=== PATIENT | male | born 1950 | race Caucasian/White ===

== ENCOUNTER 2020-02-15 07:10 | Inpatient (IN) ==
[2020-02-15] MEDS ORDERED: GLUCAGON 1 MG VIAL IM PRN ×2 (12:12)
[2020-02-15] MEDS ORDERED: CEFUROXIME INJ 1,500 MG in SODIUM CHLORIDE 0.9% 100 ML IV ONE (12:12)
[2020-02-15] MEDS ORDERED: DEXTROSE 50% 25 GM/50 ML VIAL IV PRN ×2 (12:12)
[2020-02-15] MEDS ORDERED: SODIUM CHLORIDE 0.9% 1,000 ML IV SCH (12:30)
[2020-02-15] MEDS ORDERED: CLORAZEPATE 3.75 MG TABLET PO PRN (14:07)
[2020-02-15] MEDS ORDERED: NITROGLYCERIN SL 0.4 MG TABLET SL PRN (14:07)
[2020-02-15] MEDS ORDERED: ZALEPLON 5 MG CAPSULE PO PRN (14:08)
[2020-02-15] MEDS: INSULIN LISPRO 100 UNIT/ML SUBCUT SCH ×2 (16:55→20:55)
[2020-02-15 16:57] LABS: Basophils % 0.3 % (0.0-0.8); Eosinophils # 0.1 10*3/uL (0.0-0.87); Eosinophils % 0.9 % (0.00-10.9); Hematocrit 34.6 VOL% (42.0-52.0); Hemoglobin 11.4 GM/DL (14.0-18.0); Immature Granulocytes % 0.6 %; Immature Granulocytes Absolute 0.06 #; Lymphocytes # 1.4 10*3/uL (1.4-4.0); Lymphocytes % 14.9 % (21.2-54.2); Mean Corpuscular HGB Conc 32.9 GM/DL (32-36); Mean Corpuscular Volume 90.6 FL (87-102); Mean Platelet Volume 10.8 FL (9.6-12.0); Monocytes % 11.5 % (1.7-12.7); Neutrophils % 71.8 % (38.7-73.9); Platelet Count 292 T/CUMM (130-400); Red Blood Count 3.82 MC/CUMM (3.8-5.5); Red Cell Distribution Width 13.8 % (9.3-17.3); White Blood Count 9.6 T/CUMM (4-12)
[2020-02-15 17:30] LABS: Albumin 3.2 G/DL (3.4-5.0); Bilirubin,Total 0.9 MG/DL (0.2-1.0); CKMB % 2.8 %; Calcium 9.2 MG/DL (8.5-10.1); Osmolality,Calculated 282.7 MOS/KG (273-304)
[2020-02-15 17:33] LABS: Troponin I 23.9 NG/ML (0.00-0.045)
[2020-02-15] MEDS: CHLORHEXIDINE 4% SOLN 118 ML BOTTLE TOP SCH ×2 (17:45→23:41)
[2020-02-15 19:56] LABS: Partial Thromboplastin Time 26.8 SECS (23.9-33.8)
[2020-02-15] MEDS ORDERED: HEPARIN DRIP 25,000 UNITS/500 ML PREMIX IV SCH (20:00)
[2020-02-15] MEDS: POTASSIUM CHLORIDE RIDER 10 MEQ in PREMIX 1 EACH IV PRN ×3 (20:20→22:12)
[2020-02-15] MEDS: CHLORHEXIDINE 0.12% ORAL RINSE 60 ML BOTTLE SWISH/SPIT SCH (20:55)
[2020-02-16 04:02] LABS: ABG Base Excess 0.4 MMOL/L (-2.5-2.5); ABG HCO3 23.3 MMOL/L (20-26); ABG Oxygen Saturation 97.8 % (95-100); ABG PCO2 31.6 MM HG (35-48); ABG PH 7.485 (7.35-7.45); ABG PO2 109.7 MM HG (80-95); ABG TCO2 24.2 MMOL/L (23-27); Allen Test Positive; Pt O2 Delivery Device CPAP
[2020-02-16] MEDS ORDERED: PAPAVERINE 60 MG/2 ML VIAL ONE (04:21)
[2020-02-16] MEDS ORDERED: VANCOMYCIN 1,000 MG VIAL ONE (04:22)
[2020-02-16] MEDS ORDERED: VANCOMYCIN 500 MG VIAL ONE (04:22)
[2020-02-16 04:40] LABS: Basophils % 0.4 % (0.0-0.8); Eosinophils # 0.1 10*3/uL (0.0-0.87); Eosinophils % 1.6 % (0.00-10.9); Hematocrit 33.4 VOL% (42.0-52.0); Hemoglobin 11.1 GM/DL (14.0-18.0); Immature Granulocytes % 0.4 %; Immature Granulocytes Absolute 0.04 #; Lymphocytes # 1.6 10*3/uL (1.4-4.0); Lymphocytes % 17.5 % (21.2-54.2); Mean Corpuscular HGB Conc 33.2 GM/DL (32-36); Mean Corpuscular Volume 89.8 FL (87-102); Mean Platelet Volume 10.6 FL (9.6-12.0); Monocytes % 10.5 % (1.7-12.7); Neutrophils % 69.6 % (38.7-73.9); Platelet Count 273 T/CUMM (130-400); Red Blood Count 3.72 MC/CUMM (3.8-5.5); Red Cell Distribution Width 13.8 % (9.3-17.3); White Blood Count 8.9 T/CUMM (4-12)
[2020-02-16] MEDS: CHLORHEXIDINE 4% SOLN 118 ML BOTTLE TOP SCH (04:52)
[2020-02-16 05:00] LABS: PT Patient Result 11.1 SECS (9.8-11.9); Partial Thromboplastin Time 32.2 SECS (23.9-33.8)
[2020-02-16] MEDS ORDERED: CEFUROXIME INJ 1,500 MG in SYRINGE 1 EACH IV ONE (05:00)
[2020-02-16 05:01] LABS: Calcium 8.9 MG/DL (8.5-10.1); Osmolality,Calculated 285.5 MOS/KG (273-304)
[2020-02-16 05:07] LABS: CKMB % 2.1 %; Troponin I 19.7 NG/ML (0.00-0.045)
[2020-02-16] MEDS ORDERED: FAMOTIDINE 20 MG TABLET PO ONE (06:00)
[2020-02-16] MEDS ORDERED: DIAZEPAM 5 MG TABLET PO ONE (06:00)
[2020-02-16] MEDS ORDERED: ETOMIDATE 40 MG/20 ML VIAL IV ONE (06:05)
[2020-02-16] MEDS ORDERED: LIDOCAINE 2% 5 ML VIAL ONE ×2 (06:06→10:50)
[2020-02-16] MEDS ORDERED: SUFentanil 250 MCG/5 ML AMP ONE (06:06)
[2020-02-16] MEDS ORDERED: MIDAZOLAM 10 MG/2 ML VIAL ONE (06:06)
[2020-02-16 07:42] LABS: ABG Base Excess -0.2 MMOL/L (-2.5-2.5); ABG HCO3 24.3 MMOL/L (20-26); ABG Oxygen Saturation 99.9 % (95-100); ABG PH 7.421 (7.35-7.45); ABG TCO2 21.8 MMOL/L (23-27); Glucose Heart Surgery 128 MG/DL (74-106); Hematocrit Heart Surgery 30.8 PERCENT (42-52); Ionized Calcium Arterial 1.17 MMOL/L (1.21-1.46); PH Patient Temp Arterial 7.421; Patient Temperature 37 CELCIUS; Potassium Heart/CVR 3.6 MMOL/L (3.5-5.1); Sodium Heart/CVR 140 MMOL/L (135-145)
[2020-02-16 07:48] LABS: Bilirubin,Urine Negative (Negative); Blood, Urine Negative (Negative); Glucose,Urine (UA) Negative (Negative); Ketones,Urine Negative (Negative); Nitrite,Urine Negative (Negative); Protein,Urine 100 MG/DL; RBC,Urine 1 /HPF (0-4); Urine Appearance CLEAR (Clear); Urine Color Yellow (Yellow); Urine Specific Gravity 1.016 (1.001-1.035); Urine Urobilinogen < 2.0 EU/DL (0.2-1.0); WBC,Urine 1 /HPF (0-6)
[2020-02-16] MEDS ORDERED: NITROPRUSSIDE 50 MG/2 ML VIAL ONE (08:12)
[2020-02-16] MEDS ORDERED: SODIUM BICARBONATE 50 MEQ/50 ML VIAL IV ONE ×2 (08:12→10:51)
[2020-02-16] MEDS ORDERED: POTASSIUM CHLORIDE RIDER 100 ML IV ONE (08:12)
[2020-02-16] MEDS ORDERED: PHENYLEPHRINE DRIP 40 MG/250 ML PREMIX IV ONE (08:13)
[2020-02-16] MEDS ORDERED: CALCIUM CHLORIDE 1,000 MG/10 ML SYRINGE IV ONE (08:13)
[2020-02-16] MEDS ORDERED: ALBUMIN 5% 12.5 GM/250 ML VIAL IV ONE (08:16)
[2020-02-16] MEDS ORDERED: ATROPINE 1 MG/10 ML SYRINGE ONE (08:16)
[2020-02-16] MEDS ORDERED: LIDOCAINE 100 MG/5 ML SYRINGE ONE (08:17)
[2020-02-16] MEDS ORDERED: EPINEPHrine 1 MG/10 ML SYRINGE ONE (08:17)
[2020-02-16 09:19] LABS: Hematocrit Heart Surgery 24.1 PERCENT (42-52); Hemoglobin Heart Surgery 7.7 G/DL (14.0-18.0); PCO2 Patient Temp Venous 37.2 MM HG; PH Patient Temp Venous 7.434; PO2 Patient Temp Venous 37.9 MM HG; VBG Base Excess 0.9 MEQ/L (0-4); VBG Oxygen Saturation 75.2 %; VBG PCO2 40.9 MMHG (41-51); VBG PH 7.405; VBG PO2 43.5 MMHG (17-40)
[2020-02-16] MEDS ORDERED: AMINOCAPROIC ACID 5,000 MG/20 ML VIAL ONE (09:41)
[2020-02-16] MEDS ORDERED: VECURONIUM 10 MG VIAL IV ONE (09:41)
[2020-02-16] MEDS ORDERED: SODIUM CHLORIDE 0.9% 250 ML IV ONE (09:41)
[2020-02-16] MEDS ORDERED: CALCIUM CHLORIDE 1,000 MG/10 ML VIAL IV ONE (09:41)
[2020-02-16] MEDS ORDERED: SODIUM CHLORIDE 0.9% 1,000 ML IV ONE (09:41)
[2020-02-16] MEDS ORDERED: PHENYLEPHRINE DRIP 20 MG/250 ML PREMIX IV ONE (09:41)
[2020-02-16] MEDS ORDERED: PHENYLEPHRINE 1 MG/10 ML SYRINGE IV ONE (09:41)
[2020-02-16] MEDS ORDERED: LACTATED RINGERS 1,000 ML IV ONE (09:41)
[2020-02-16 09:53] LABS: Hematocrit Heart Surgery 24.3 PERCENT (42-52); Hemoglobin Heart Surgery 7.8 G/DL (14.0-18.0); PCO2 Patient Temp Venous 33.9 MM HG; PH Patient Temp Venous 7.458; PO2 Patient Temp Venous 39.1 MM HG; Potassium Heart/CVR 3.9 MMOL/L (3.5-5.1); VBG Base Excess 0.6 MEQ/L (0-4); VBG HCO3 24.7 MEQ/L (24-28); VBG Oxygen Saturation 81.7 %; VBG PCO2 39.2 MMHG (41-51); VBG PH 7.414; VBG PO2 48.1 MMHG (17-40)
[2020-02-16 10:50] LABS: ABG Base Excess -1.5 MMOL/L (-2.5-2.5); ABG HCO3 23.2 MMOL/L (20-26); ABG Oxygen Saturation 99.8 % (95-100); ABG PCO2 39.5 MM HG (35-48); ABG PH 7.381 (7.35-7.45); ABG TCO2 21.9 MMOL/L (23-27); Glucose Heart Surgery 235 MG/DL (74-106); Hematocrit Heart Surgery 24.4 PERCENT (42-52); Hemoglobin Heart Surgery 7.8 G/DL (14.0-18.0); PCO2 Patient Temp Arterial 39.5 MMHG; PH Patient Temp Arterial 7.381; Patient Temperature 37 CELCIUS; Potassium Heart/CVR 3.8 MMOL/L (3.5-5.1); Sodium Heart/CVR 135 MMOL/L (135-145)
[2020-02-16] MEDS ORDERED: DEXTROSE 5% KCL 20 MEQ 20 MEQ/1,000 ML BAG IV ONE (10:50)
[2020-02-16] MEDS ORDERED: MAGNESIUM SULFATE 5 GM/10 ML VIAL IV ONE (10:50)
[2020-02-16] MEDS ORDERED: methylPREDNISolone SOD SUC 1,000 MG/8 ML VIAL ONE (10:50)
[2020-02-16] MEDS ORDERED: ALBUMIN 25% 25 GM/100 ML VIAL IV ONE (10:50)
[2020-02-16] MEDS ORDERED: FUROSEMIDE 20 MG/2 ML VIAL ONE (10:51)
[2020-02-16] MEDS ORDERED: HEPARIN 10,000 UNIT/10 ML VIAL ONE (10:51)
[2020-02-16] MEDS ORDERED: MANNITOL 100 GM/500 ML BAG IV ONE (10:51)
[2020-02-16] MEDS ORDERED: PROTAMINE SULFATE 50 MG/5 ML VIAL IV ONE (10:51)
[2020-02-16] MEDS ORDERED: PROTAMINE SULFATE 250 MG/25 ML VIAL IV ONE (10:51)
[2020-02-16] MEDS ORDERED: INSULIN REGULAR 100 UNIT/ML IV ONE (10:59)
[2020-02-16] MEDS ORDERED: MIDAZOLAM 10 MG/2 ML VIAL IV PRN (10:59)
[2020-02-16] MEDS ORDERED: NITROPRUSSIDE 100 MG in DEXTROSE 5% 250 ML IV PRN (10:59)
[2020-02-16] MEDS ORDERED: LACTATED RINGERS 250 ML IV PRN (10:59)
[2020-02-16] MEDS ORDERED: MORPHINE 10 MG/1 ML VIAL IV PRN (10:59)
[2020-02-16] MEDS ORDERED: MIDAZOLAM 2 MG/2 ML VIAL IV PRN (10:59)
[2020-02-16] MEDS ORDERED: CALCIUM CHLORIDE 1,000 MG/10 ML SYRINGE IV PRN (10:59)
[2020-02-16] MEDS ORDERED: ACETAMINOPHEN 650 MG SUPP RECTAL PRN (10:59)
[2020-02-16] MEDS ORDERED: PHENYLEPHRINE DRIP 40 MG/250 ML PREMIX IV PRN (10:59)
[2020-02-16] MEDS ORDERED: MORPHINE 4 MG/1 ML VIAL IV PRN (10:59)
[2020-02-16] MEDS ORDERED: VECURONIUM 10 MG VIAL IV PRN ×2 (10:59)
[2020-02-16] MEDS ORDERED: MAGNESIUM SULF RIDER 4 GM in PREMIX 1 EACH IV PRN (10:59)
[2020-02-16] MEDS ORDERED: ALBUMIN 5% 12.5 GM in PREMIX 1 EACH IV PRN (10:59)
[2020-02-16] MEDS ORDERED: CHLORHEXIDINE 4% SOLN 118 ML BOTTLE TOP PRN (10:59)
[2020-02-16] MEDS ORDERED: MAGNESIUM SULF RIDER 2 GM in PREMIX 1 EACH IV PRN (10:59)
[2020-02-16] MEDS ORDERED: DEXTROSE 50% 25 GM/50 ML VIAL IV PRN ×2 (10:59)
[2020-02-16] MEDS ORDERED: INSULIN REGULAR 100 UNIT/ML IV PRN (10:59)
[2020-02-16] MEDS ORDERED: ONDANSETRON 4 MG/2 ML VIAL IV PRN (10:59)
[2020-02-16] MEDS ORDERED: INSULIN REGULAR DRIP 100 ML IV SCH (11:00)
[2020-02-16] MEDS ORDERED: SODIUM CHLORIDE 0.45% 1,000 ML IV SCH ×2 (11:00)
[2020-02-16] MEDS ORDERED: SEVOFLURANE 1 UNIT/15 MINUTE INH ONE (11:35)
[2020-02-16 11:40] LABS: ABG Base Excess -0.6 MMOL/L (-2.5-2.5); ABG HCO3 23.9 MMOL/L (20-26); ABG Oxygen Saturation 99.9 % (95-100); ABG PCO2 37.5 MM HG (35-48); ABG TCO2 22.2 MMOL/L (23-27); Glucose Heart Surgery 243 MG/DL (74-106); Hematocrit Heart Surgery 24.9 PERCENT (42-52); Potassium Heart/CVR 3.8 MMOL/L (3.5-5.1)
[2020-02-16 11:48] LABS: Basophils % 0.1 % (0.0-0.8); Eosinophils # 0.1 10*3/uL (0.0-0.87); Hemoglobin 8.1 GM/DL (14.0-18.0); Immature Granulocytes % 1.2 %; Immature Granulocytes Absolute 0.16 #; Lymphocytes # 1.6 10*3/uL (1.4-4.0); Lymphocytes % 11.6 % (21.2-54.2); Mean Corpuscular HGB Conc 33.8 GM/DL (32-36); Mean Corpuscular Volume 90.2 FL (87-102); Mean Platelet Volume 10.9 FL (9.6-12.0); Monocytes % 7.5 % (1.7-12.7); Neutrophils % 78.6 % (38.7-73.9); Platelet Count 309 T/CUMM (130-400); Red Blood Count 2.66 MC/CUMM (3.8-5.5); Red Cell Distribution Width 13.9 % (9.3-17.3); White Blood Count 13.4 T/CUMM (4-12)
[2020-02-16] MEDS: LACTATED RINGERS 1,000 ML IV PRN ×2 (12:00→16:00)
[2020-02-16 12:01] LABS: INR 1.2; Partial Thromboplastin Time 29.6 SECS (23.9-33.8)
[2020-02-16 12:09] LABS: Albumin 2.9 G/DL (3.4-5.0); Bilirubin,Total 0.9 MG/DL (0.2-1.0); Calcium 8.2 MG/DL (8.5-10.1); Osmolality,Calculated 286.7 MOS/KG (273-304); Total Protein 5.8 G/DL (6.4-8.3)
[2020-02-16 12:12] LABS: Troponin I 16.4 NG/ML (0.00-0.045)
[2020-02-16] MEDS: POTASSIUM CHLORIDE RIDER 20 MEQ in PREMIX 1 EACH IV PRN ×4 (14:00→21:00)
[2020-02-16] MEDS: POTASSIUM CHLORIDE RIDER 10 MEQ in PREMIX 1 EACH IV PRN ×2 (14:02→16:24)
[2020-02-16 15:26] LABS: ABG Base Excess -2.7 MMOL/L (-2.5-2.5); ABG HCO3 22.1 MMOL/L (20-26); ABG Oxygen Saturation 97.9 % (95-100); ABG PCO2 36.5 MM HG (35-48); ABG PH 7.385 (7.35-7.45); ABG PO2 98.1 MM HG (80-95); ABG TCO2 20.1 MMOL/L (23-27); Glucose Heart Surgery 256 MG/DL (74-106); Hematocrit Heart Surgery 28.3 PERCENT (42-52); Hemoglobin Heart Surgery 9.1 G/DL (14.0-18.0); Potassium Heart/CVR 3.8 MMOL/L (3.5-5.1)
[2020-02-16 16:37] LABS: ABG Base Excess -1.9 MMOL/L (-2.5-2.5); ABG HCO3 22.8 MMOL/L (20-26); ABG Oxygen Saturation 97.3 % (95-100); ABG PCO2 36.8 MM HG (35-48); ABG PH 7.395 (7.35-7.45); ABG PO2 89.6 MM HG (80-95); ABG TCO2 20.6 MMOL/L (23-27); Glucose Heart Surgery 225 MG/DL (74-106); Hematocrit Heart Surgery 29.6 PERCENT (42-52); Hemoglobin Heart Surgery 9.5 G/DL (14.0-18.0); Potassium Heart/CVR 4.1 MMOL/L (3.5-5.1)
[2020-02-16] MEDS ORDERED: FUROSEMIDE 40 MG/4 ML VIAL IV ONE (18:27)
[2020-02-16] MEDS: CEFUROXIME INJ 1,500 MG in SYRINGE 1 EACH IV SCH (18:42)
[2020-02-16 18:44] LABS: ABG Base Excess -3.5 MMOL/L (-2.5-2.5); ABG HCO3 21.4 MMOL/L (20-26); ABG Oxygen Saturation 96.1 % (95-100); ABG PCO2 35.2 MM HG (35-48); ABG PH 7.383 (7.35-7.45); ABG PO2 79.7 MM HG (80-95); Glucose Heart Surgery 196 MG/DL (74-106); Hematocrit Heart Surgery 31.9 PERCENT (42-52); Hemoglobin Heart Surgery 10.3 G/DL (14.0-18.0); Potassium Heart/CVR 3.6 MMOL/L (3.5-5.1)
[2020-02-16 19:08] LABS: CKMB % 4.4 %
[2020-02-16 19:09] LABS: Troponin I 16.5 NG/ML (0.00-0.045)
[2020-02-16] MEDS: CHLORHEXIDINE 0.12% ORAL RINSE 60 ML BOTTLE SWISH/SPIT SCH (21:02)
[2020-02-16 23:47] LABS: ABG HCO3 23.5 MMOL/L (20-26); ABG Oxygen Saturation 96.2 % (95-100); ABG PCO2 36.1 MM HG (35-48); ABG PH 7.415 (7.35-7.45); ABG PO2 81.5 MM HG (80-95); Glucose Heart Surgery 144 MG/DL (74-106); Hematocrit Heart Surgery 31.2 PERCENT (42-52); Hemoglobin Heart Surgery 10.1 G/DL (14.0-18.0); Potassium Heart/CVR 4.2 MMOL/L (3.5-5.1)
[2020-02-17] MEDS: POTASSIUM CHLORIDE RIDER 20 MEQ in PREMIX 1 EACH IV PRN ×3 (00:11→06:17)
[2020-02-17 02:33] LABS: ABG Base Excess -2.1 MMOL/L (-2.5-2.5); ABG HCO3 21.3 MMOL/L (20-26); ABG Oxygen Saturation 95.9 % (95-100); ABG PCO2 31.8 MM HG (35-48); ABG PH 7.444 (7.35-7.45); ABG PO2 86.4 MM HG (80-95); ABG TCO2 22.3 MMOL/L (23-27); Glucose Heart Surgery 98 MG/DL (74-106); Hemoglobin Heart Surgery 11.3 G/DL (14.0-18.0); Potassium Heart/CVR 4.1 MMOL/L (3.5-5.1)
[2020-02-17 03:18] LABS: Basophils % 0.1 % (0.0-0.8); Hematocrit 31.8 VOL% (42.0-52.0); Hemoglobin 10.8 GM/DL (14.0-18.0); Immature Granulocytes % 0.5 %; Immature Granulocytes Absolute 0.07 #; Lymphocytes # 0.6 10*3/uL (1.4-4.0); Lymphocytes % 4.1 % (21.2-54.2); Mean Corpuscular Volume 86.4 FL (87-102); Mean Platelet Volume 10.9 FL (9.6-12.0); Monocytes % 4.1 % (1.7-12.7); Neutrophils % 91.2 % (38.7-73.9); Platelet Count 261 T/CUMM (130-400); Red Blood Count 3.68 MC/CUMM (3.8-5.5); Red Cell Distribution Width 16.2 % (9.3-17.3)
[2020-02-17 03:22] LABS: ABG Base Excess -1.4 MMOL/L (-2.5-2.5); ABG HCO3 23.1 MMOL/L (20-26); ABG PCO2 35.2 MM HG (35-48); ABG PH 7.414 (7.35-7.45); ABG PO2 75.6 MM HG (80-95); ABG TCO2 19.9 MMOL/L (23-27); Glucose Heart Surgery 118 MG/DL (74-106); Hematocrit Heart Surgery 37.8 PERCENT (42-52); Hemoglobin Heart Surgery 12.3 G/DL (14.0-18.0); Potassium Heart/CVR 3.9 MMOL/L (3.5-5.1)
[2020-02-17 03:41] LABS: Albumin 2.9 G/DL (3.4-5.0); Bilirubin,Direct 0.34 MG/DL (0.0-0.20); Bilirubin,Total 0.6 MG/DL (0.2-1.0); Calcium 8.6 MG/DL (8.5-10.1); Osmolality,Calculated 286.4 MOS/KG (273-304)
[2020-02-17 03:53] LABS: CKMB % 7.6 %
[2020-02-17 03:55] LABS: Troponin I 70.4 NG/ML (0.00-0.045)
[2020-02-17 04:10] LABS: Band Neutrophils 1 % (0-10); Hypochromasia 1+; Lymphocytes 6 % (20-55); Microcytosis 1+; Platelet Estimate Adequate; Segmented Neutrophils 91 % (50-85); Total Cells Counted 100
[2020-02-17] MEDS: CEFUROXIME INJ 1,500 MG in SYRINGE 1 EACH IV SCH (06:17)
[2020-02-17] MEDS ORDERED: DEXTROSE 50% 25 GM/50 ML VIAL IV PRN ×2 (06:47→09:12)
[2020-02-17] MEDS ORDERED: GLUCAGON 1 MG VIAL IM PRN ×2 (06:47→09:12)
[2020-02-17] MEDS: INSULIN REGULAR 100 UNIT/ML SUBCUT SCH ×4 (07:29→20:55)
[2020-02-17] MEDS: CHLORHEXIDINE 0.12% ORAL RINSE 60 ML BOTTLE SWISH/SPIT SCH ×4 (07:30→20:55)
[2020-02-17] MEDS: CHLORHEXIDINE 4% SOLN 118 ML BOTTLE TOP SCH (07:30)
[2020-02-17] MEDS: INSULIN LISPRO 100 UNIT/ML SUBCUT SCH (07:30)
[2020-02-17] MEDS ORDERED: MAGNESIUM SULF RIDER 2 GM in PREMIX 1 EACH IV PRN (09:12)
[2020-02-17] MEDS ORDERED: ACETAMINOPHEN 325 MG TABLET PO PRN (09:12)
[2020-02-17] MEDS ORDERED: MAGNESIUM HYDROXIDE SUSP 30 ML UDCUP PO PRN (09:12)
[2020-02-17] MEDS ORDERED: ZALEPLON 5 MG CAPSULE PO PRN (09:12)
[2020-02-17] MEDS ORDERED: POTASSIUM CHLORIDE 20 MEQ TABLET PO PRN (09:12)
[2020-02-17] MEDS ORDERED: MAGNESIUM SULF RIDER 4 GM in PREMIX 1 EACH IV PRN (09:12)
[2020-02-17] MEDS ORDERED: NON-FORMULARY MEDICATION (Cyanocobalamin-Cobamamide [B12] 5,000-100 mcg Lozenge) SL SCH (09:12)
[2020-02-17] MEDS ORDERED: SODIUM CHLOR 0.45% KCL 20 MEQ 20 MEQ/1,000 ML BAG IV SCH (09:12)
[2020-02-17] MEDS ORDERED: ALUMINUM/MAGNES/SIMETH MAX STR 30 ML UDCUP PO PRN (09:12)
[2020-02-17] MEDS ORDERED: ONDANSETRON 4 MG/2 ML VIAL IV PRN (09:12)
[2020-02-17] MEDS: PANTOPRAZOLE 40 MG TABLET PO SCH (09:44)
[2020-02-17] MEDS: DOCUSATE SODIUM 100 MG CAPSULE PO SCH ×2 (09:44→20:54)
[2020-02-17] MEDS: FENOFIBRATE 145 MG TABLET PO SCH (09:44)
[2020-02-17] MEDS: LORATADINE 10 MG TABLET PO SCH (09:44)
[2020-02-17] MEDS: FERROUS SULFATE 325 MG TABLET PO SCH (09:44)
[2020-02-17] MEDS: ASPIRIN EC 325 MG TABLET PO SCH (09:44)
[2020-02-17 13:27] LABS: Troponin I 46.7 NG/ML (0.00-0.045)
[2020-02-17] MEDS: carvediloL 3.125 MG TABLET PO SCH (20:54)
[2020-02-17] MEDS: ROSUVASTATIN 20 MG TABLET PO SCH (20:54)
[2020-02-18] MEDS: INSULIN REGULAR 100 UNIT/ML SUBCUT SCH ×6 (00:17→20:48)
[2020-02-18 06:00] LABS: Basophils % 0.1 % (0.0-0.8); Hematocrit 29.4 VOL% (42.0-52.0); Hemoglobin 9.6 GM/DL (14.0-18.0); Immature Granulocytes % 0.7 %; Immature Granulocytes Absolute 0.12 #; Lymphocytes # 0.6 10*3/uL (1.4-4.0); Lymphocytes % 3.6 % (21.2-54.2); Mean Corpuscular HGB Conc 32.7 GM/DL (32-36); Mean Corpuscular Volume 89.1 FL (87-102); Mean Platelet Volume 11.7 FL (9.6-12.0); Monocytes % 8.9 % (1.7-12.7); Neutrophils % 86.7 % (38.7-73.9); Platelet Count 264 T/CUMM (130-400); Red Cell Distribution Width 15.9 % (9.3-17.3); White Blood Count 16.8 T/CUMM (4-12)
[2020-02-18] MEDS ORDERED: FUROSEMIDE 40 MG/4 ML VIAL IV ONE (06:00)
[2020-02-18 06:37] LABS: Anisocytosis 1+; Band Neutrophils 13 % (0-10); Lymphocytes 5 % (20-55); Platelet Estimate Normal; Segmented Neutrophils 74 % (50-85); Total Cells Counted 100
[2020-02-18 07:29] LABS: Albumin 2.8 G/DL (3.4-5.0); Bilirubin,Direct 0.214 MG/DL (0.0-0.20); Bilirubin,Indirect 0.5 MG/DL (0.0-1.0); Bilirubin,Total 0.75 MG/DL (0.2-1.0); Calcium 8.4 MG/DL (8.5-10.1); Total Protein 6.8 G/DL (6.4-8.3)
[2020-02-18 07:30] LABS: Osmolality,Calculated 289.8 MOS/KG (273-304)
[2020-02-18 07:31] LABS: CKMB % 4.3 %; Troponin I 27.5 NG/ML (0.00-0.045)
[2020-02-18] MEDS: DOCUSATE SODIUM 100 MG CAPSULE PO SCH ×2 (08:52→20:49)
[2020-02-18] MEDS: ASPIRIN EC 325 MG TABLET PO SCH (08:52)
[2020-02-18] MEDS: FENOFIBRATE 145 MG TABLET PO SCH (08:52)
[2020-02-18] MEDS: FERROUS SULFATE 325 MG TABLET PO SCH (08:52)
[2020-02-18] MEDS: PANTOPRAZOLE 40 MG TABLET PO SCH (08:52)
[2020-02-18] MEDS: carvediloL 3.125 MG TABLET PO SCH ×2 (08:53→20:49)
[2020-02-18] MEDS: LORATADINE 10 MG TABLET PO SCH (08:53)
[2020-02-18] MEDS: CHLORHEXIDINE 0.12% ORAL RINSE 60 ML BOTTLE SWISH/SPIT SCH ×2 (08:55→20:50)
[2020-02-18] MEDS: ALBUTEROL/IPRATROPIUM 3 ML NEB RESP TX SCH ×2 (13:21→19:04)
[2020-02-18] MEDS: ROSUVASTATIN 20 MG TABLET PO SCH (20:49)
[2020-02-19] MEDS: INSULIN REGULAR 100 UNIT/ML SUBCUT SCH ×6 (01:18→20:55)
[2020-02-19] MEDS: ALBUTEROL/IPRATROPIUM 3 ML NEB RESP TX SCH ×4 (01:36→19:21)
[2020-02-19 06:10] LABS: Basophils % 0.1 % (0.0-0.8); Eosinophils % 0.1 % (0.00-10.9); Hematocrit 28.7 VOL% (42.0-52.0); Hemoglobin 9.1 GM/DL (14.0-18.0); Immature Granulocytes % 1.1 %; Immature Granulocytes Absolute 0.14 #; Lymphocytes % 8.2 % (21.2-54.2); Mean Corpuscular HGB Conc 31.7 GM/DL (32-36); Mean Corpuscular Volume 90.5 FL (87-102); Mean Platelet Volume 11.6 FL (9.6-12.0); Monocytes % 9.6 % (1.7-12.7); Neutrophils % 80.9 % (38.7-73.9); Platelet Count 268 T/CUMM (130-400); Red Blood Count 3.17 MC/CUMM (3.8-5.5); Red Cell Distribution Width 15.3 % (9.3-17.3); White Blood Count 12.7 T/CUMM (4-12)
[2020-02-19 06:58] LABS: Albumin 2.7 G/DL (3.4-5.0); Bilirubin,Direct 0.23 MG/DL (0.0-0.20); Bilirubin,Indirect 0.8 MG/DL (0.0-1.0); CKMB % 3.1 %; Calcium 8.3 MG/DL (8.5-10.1); Osmolality,Calculated 298.4 MOS/KG (273-304); Total Protein 6.5 G/DL (6.4-8.3)
[2020-02-19 07:08] LABS: Troponin I 25.6 NG/ML (0.00-0.045)
[2020-02-19] MEDS: POLYETHYLENE GLYCOL POWDER 17 GM PACK PO SCH (10:28)
[2020-02-19] MEDS: ASPIRIN EC 325 MG TABLET PO SCH (10:28)
[2020-02-19] MEDS: DOCUSATE SODIUM 100 MG CAPSULE PO SCH ×2 (10:28→21:01)
[2020-02-19] MEDS: carvediloL 3.125 MG TABLET PO SCH ×2 (10:29→21:01)
[2020-02-19] MEDS: CHLORHEXIDINE 0.12% ORAL RINSE 60 ML BOTTLE SWISH/SPIT SCH ×2 (10:29→21:01)
[2020-02-19] MEDS: FERROUS SULFATE 325 MG TABLET PO SCH (10:29)
[2020-02-19] MEDS: LORATADINE 10 MG TABLET PO SCH (10:29)
[2020-02-19] MEDS: PANTOPRAZOLE 40 MG TABLET PO SCH (10:29)
[2020-02-19] MEDS: FENOFIBRATE 145 MG TABLET PO SCH (10:32)
[2020-02-19] MEDS: ROSUVASTATIN 20 MG TABLET PO SCH (21:01)
[2020-02-20] MEDS: ALBUTEROL/IPRATROPIUM 3 ML NEB RESP TX SCH ×4 (01:32→19:27)
[2020-02-20 06:27] LABS: Basophils % 0.2 % (0.0-0.8); Eosinophils # 0.2 10*3/uL (0.0-0.87); Eosinophils % 1.6 % (0.00-10.9); Hematocrit 30.4 VOL% (42.0-52.0); Hemoglobin 9.6 GM/DL (14.0-18.0); Immature Granulocytes % 1.1 %; Immature Granulocytes Absolute 0.13 #; Lymphocytes # 1.7 10*3/uL (1.4-4.0); Lymphocytes % 13.6 % (21.2-54.2); Mean Corpuscular HGB Conc 31.6 GM/DL (32-36); Mean Corpuscular Volume 91.3 FL (87-102); Mean Platelet Volume 11.3 FL (9.6-12.0); Monocytes % 9.5 % (1.7-12.7); NRBC # 0.02 10*3/uL; Platelet Count 341 T/CUMM (130-400); Red Blood Count 3.33 MC/CUMM (3.8-5.5); Red Cell Distribution Width 15.2 % (9.3-17.3); White Blood Count 12.3 T/CUMM (4-12)
[2020-02-20 06:50] LABS: CKMB % 1.4 %; Calcium 8.6 MG/DL (8.5-10.1); Osmolality,Calculated 297.3 MOS/KG (273-304)
[2020-02-20] MEDS: INSULIN REGULAR 100 UNIT/ML SUBCUT SCH ×4 (07:53→21:34)
[2020-02-20] MEDS: carvediloL 3.125 MG TABLET PO SCH ×2 (08:51→21:34)
[2020-02-20] MEDS: LORATADINE 10 MG TABLET PO SCH (08:51)
[2020-02-20] MEDS: PANTOPRAZOLE 40 MG TABLET PO SCH (08:51)
[2020-02-20] MEDS: DOCUSATE SODIUM 100 MG CAPSULE PO SCH ×2 (08:52→21:30)
[2020-02-20] MEDS: ASPIRIN EC 325 MG TABLET PO SCH (08:52)
[2020-02-20] MEDS: PIOGLITAZONE 15 MG TABLET PO SCH (08:52)
[2020-02-20] MEDS: CHLORHEXIDINE 0.12% ORAL RINSE 60 ML BOTTLE SWISH/SPIT SCH ×2 (08:52→21:35)
[2020-02-20] MEDS: FENOFIBRATE 145 MG TABLET PO SCH (08:52)
[2020-02-20] MEDS: FERROUS SULFATE 325 MG TABLET PO SCH (08:52)
[2020-02-20] MEDS: POLYETHYLENE GLYCOL POWDER 17 GM PACK PO SCH (08:52)
[2020-02-20] MEDS: AMIODARONE 200 MG TABLET PO SCH ×2 (09:42→21:31)
[2020-02-20] MEDS: ROSUVASTATIN 20 MG TABLET PO SCH (21:30)
[2020-02-21] MEDS: ALBUTEROL/IPRATROPIUM 3 ML NEB RESP TX SCH ×4 (02:02→20:00)
[2020-02-21 05:16] LABS: Basophils % 0.2 % (0.0-0.8); Eosinophils # 0.4 10*3/uL (0.0-0.87); Eosinophils % 4.5 % (0.00-10.9); Hematocrit 29.7 VOL% (42.0-52.0); Hemoglobin 9.4 GM/DL (14.0-18.0); Immature Granulocytes % 1.2 %; Immature Granulocytes Absolute 0.11 #; Lymphocytes # 1.5 10*3/uL (1.4-4.0); Lymphocytes % 16.1 % (21.2-54.2); Mean Corpuscular HGB Conc 31.6 GM/DL (32-36); Mean Corpuscular Volume 91.4 FL (87-102); Mean Platelet Volume 10.9 FL (9.6-12.0); Monocytes % 11.8 % (1.7-12.7); Neutrophils % 66.2 % (38.7-73.9); Platelet Count 351 T/CUMM (130-400); Red Blood Count 3.25 MC/CUMM (3.8-5.5); Red Cell Distribution Width 15.1 % (9.3-17.3); White Blood Count 9.3 T/CUMM (4-12)
[2020-02-21 05:31] LABS: Alanine Aminotransferase 45 U/L (16-61); Albumin 2.7 G/DL (3.4-5.0); Alkaline Phosphatase 51 U/L (45-117); Aspartate Amino Transferase 48 U/L (0-37); Bilirubin,Indirect 0.3 MG/DL (0.0-1.0); Blood Urea Nitrogen 49 MG/DL (7-18); Calcium 8.2 MG/DL (8.5-10.1); Estimated Glom Filtration Rate 41 ML/MIN; Glucose 95 MG/DL (74-106); Osmolality,Calculated 289.5 MOS/KG (273-304); Total Protein 6.4 G/DL (6.4-8.3)
[2020-02-21] MEDS: INSULIN REGULAR 100 UNIT/ML SUBCUT SCH ×4 (07:59→21:20)
[2020-02-21] MEDS: DOCUSATE SODIUM 100 MG CAPSULE PO SCH ×2 (09:28→21:18)
[2020-02-21] MEDS: AMIODARONE 200 MG TABLET PO SCH ×2 (09:28→21:19)
[2020-02-21] MEDS: carvediloL 3.125 MG TABLET PO SCH ×2 (09:28→21:19)
[2020-02-21] MEDS: FERROUS SULFATE 325 MG TABLET PO SCH (09:28)
[2020-02-21] MEDS: ASPIRIN EC 325 MG TABLET PO SCH (09:28)
[2020-02-21] MEDS: FENOFIBRATE 145 MG TABLET PO SCH (09:28)
[2020-02-21] MEDS: PIOGLITAZONE 15 MG TABLET PO SCH (09:28)
[2020-02-21] MEDS: LORATADINE 10 MG TABLET PO SCH (09:29)
[2020-02-21] MEDS: PANTOPRAZOLE 40 MG TABLET PO SCH (09:29)
[2020-02-21] MEDS: POLYETHYLENE GLYCOL POWDER 17 GM PACK PO SCH (09:29)
[2020-02-21] MEDS: CHLORHEXIDINE 0.12% ORAL RINSE 60 ML BOTTLE SWISH/SPIT SCH ×3 (09:29→21:19)
[2020-02-21] MEDS: ASCORBIC ACID 500 MG TABLET PO SCH ×2 (10:53→21:18)
[2020-02-21] MEDS: ROSUVASTATIN 20 MG TABLET PO SCH (21:18)
[2020-02-22] MEDS: ALBUTEROL/IPRATROPIUM 3 ML NEB RESP TX SCH ×4 (01:41→19:28)
[2020-02-22 06:20] LABS: Basophils % 0.2 % (0.0-0.8); Eosinophils # 0.4 10*3/uL (0.0-0.87); Eosinophils % 4.7 % (0.00-10.9); Hematocrit 29.3 VOL% (42.0-52.0); Hemoglobin 9.4 GM/DL (14.0-18.0); Immature Granulocytes % 0.9 %; Immature Granulocytes Absolute 0.07 #; Lymphocytes # 1.4 10*3/uL (1.4-4.0); Lymphocytes % 16.8 % (21.2-54.2); Mean Corpuscular HGB Conc 32.1 GM/DL (32-36); Mean Corpuscular Volume 90.4 FL (87-102); Mean Platelet Volume 10.9 FL (9.6-12.0); Monocytes % 12.2 % (1.7-12.7); Neutrophils % 65.2 % (38.7-73.9); Platelet Count 352 T/CUMM (130-400); Red Blood Count 3.24 MC/CUMM (3.8-5.5); Red Cell Distribution Width 14.8 % (9.3-17.3)
[2020-02-22 06:50] LABS: Alanine Aminotransferase 36 U/L (16-61); Albumin 2.6 G/DL (3.4-5.0); Alkaline Phosphatase 54 U/L (45-117); Aspartate Amino Transferase 38 U/L (0-37); Bilirubin,Indirect 0.5 MG/DL (0.0-1.0); Blood Urea Nitrogen 43 MG/DL (7-18); Calcium 8.5 MG/DL (8.5-10.1); Estimated Glom Filtration Rate 36 ML/MIN; Glucose 101 MG/DL (74-106); Osmolality,Calculated 283.8 MOS/KG (273-304); Total Protein 6.4 G/DL (6.4-8.3)
[2020-02-22] MEDS: LORATADINE 10 MG TABLET PO SCH (08:46)
[2020-02-22] MEDS: DOCUSATE SODIUM 100 MG CAPSULE PO SCH ×2 (08:46→20:37)
[2020-02-22] MEDS: FENOFIBRATE 145 MG TABLET PO SCH (08:46)
[2020-02-22] MEDS: ASPIRIN EC 325 MG TABLET PO SCH (08:46)
[2020-02-22] MEDS: FERROUS SULFATE 325 MG TABLET PO SCH (08:46)
[2020-02-22] MEDS: PIOGLITAZONE 15 MG TABLET PO SCH (08:46)
[2020-02-22] MEDS: PANTOPRAZOLE 40 MG TABLET PO SCH (08:47)
[2020-02-22] MEDS: ASCORBIC ACID 500 MG TABLET PO SCH ×2 (08:47→20:37)
[2020-02-22] MEDS: CHLORHEXIDINE 0.12% ORAL RINSE 60 ML BOTTLE SWISH/SPIT SCH ×2 (08:47→20:37)
[2020-02-22] MEDS: POLYETHYLENE GLYCOL POWDER 17 GM PACK PO SCH (08:47)
[2020-02-22] MEDS: amLODIPine 10 MG TABLET PO SCH (08:52)
[2020-02-22] MEDS ORDERED: LEVOFLOXACIN 500 MG TABLET PO ONE (09:28)
[2020-02-22] MEDS ORDERED: FUROSEMIDE 40 MG/4 ML VIAL IV ONE (09:29)
[2020-02-22] MEDS: INSULIN REGULAR 100 UNIT/ML SUBCUT SCH ×4 (09:30→20:39)
[2020-02-22] MEDS: ROSUVASTATIN 20 MG TABLET PO SCH (20:37)
[2020-02-23] MEDS: ALBUTEROL/IPRATROPIUM 3 ML NEB RESP TX SCH ×2 (00:28→07:30)
[2020-02-23 06:16] LABS: Calcium 8.4 MG/DL (8.5-10.1); Osmolality,Calculated 284.7 MOS/KG (273-304)
[2020-02-23] MEDS ORDERED: LEVOFLOXACIN 500 MG TABLET PO SCH (09:00)
[2020-02-23] MEDS: DOCUSATE SODIUM 100 MG CAPSULE PO SCH (09:26)
[2020-02-23] MEDS: PANTOPRAZOLE 40 MG TABLET PO SCH (09:26)
[2020-02-23] MEDS: FENOFIBRATE 145 MG TABLET PO SCH (09:26)
[2020-02-23] MEDS: PIOGLITAZONE 15 MG TABLET PO SCH (09:26)
[2020-02-23] MEDS: ASPIRIN EC 325 MG TABLET PO SCH (09:26)
[2020-02-23] MEDS: ASCORBIC ACID 500 MG TABLET PO SCH (09:26)
[2020-02-23] MEDS: FERROUS SULFATE 325 MG TABLET PO SCH (09:26)
[2020-02-23] MEDS: LORATADINE 10 MG TABLET PO SCH (09:26)
[2020-02-23] MEDS: amLODIPine 10 MG TABLET PO SCH (09:27)
[2020-02-23] MEDS: POLYETHYLENE GLYCOL POWDER 17 GM PACK PO SCH (09:27)
[2020-02-23] MEDS: CHLORHEXIDINE 0.12% ORAL RINSE 60 ML BOTTLE SWISH/SPIT SCH (09:28)
[2020-02-23] MEDS: INSULIN REGULAR 100 UNIT/ML SUBCUT SCH ×2 (09:54→12:07)
[2020-02-23 11:09] VITALS: BP 142/82
== END 2020-02-23 13:08 | disposition home health service (06) | DRG 236 ==
LOC: N.CC 15:27 → N.CVR 02-16 11:05 → N.TELES 02-17 10:43